=== PATIENT | female | born 1980 | race Caucasian/White ===

== ENCOUNTER 2016-06-28 21:16 | Emergency (ER) | payer BC ==
[~2016-06-28] VITALS: Ht 170.2 cm; Wt 100.0 kg
[~2016-06-28 21:16] MED LIST: MOTRIN 600600 MG/TAB PO
[2016-06-28 21:19] VITALS: BP 129/88; TEMP 98
[2016-06-28 23:02] VITALS: PULSE 96
== END 2016-06-28 23:01 | disposition home or self-care (01) ==
LOC: COL.ER 21:16
DX: S52.571A Other intraarticular fracture of lower end of right radius, initial encounter for closed fracture (principal); V00.121A Fall from non-in-line roller-skates, initial encounter; Y92.331 Roller skating rink as the place of occurrence of the external cause

== ENCOUNTER 2019-11-13 18:23 | Emergency (ER) | payer BC ==
[~2019-11-13] VITALS: Ht 170.2 cm; Wt 96.4 kg
[2019-11-13 18:26] VITALS: TEMP 97.2
[2019-11-13 18:43] LABS: COLLECTION METHOD CLEAN CATCH
[2019-11-13 18:53] LABS: MUCOUS Present /lpf; PH 5 (5-8); URINE APPEARANCE Hazy; URINE BACTERIA None Seen /hpf; URINE BILIRUBIN Negative (NEGATIVE); URINE BLOOD 3+ (NEGATIVE); URINE COLOR Yellow; URINE GLUCOSE Negative (NEGATIVE); URINE KETONE Trace (NEGATIVE); URINE LEUKOCYTE ESTERASE Trace (NEGATIVE); URINE NITRATE Negative (NEGATIVE); URINE PROTEIN(semi-quant) 1+ (NEGATIVE); URINE RBC >50 /hpf; URINE UROBILINOGEN Negative (NEGATIVE)
[2019-11-13 19:24] LABS: BASO % 0.4 % (0.0-2.0); EOS % 0.5 % (0-4.0); GRAN # 7.3 (1.4-6.5); HEMATOCRIT 37.2 % (37.0-47.0); HEMOGLOBIN 12.5 g/dl (12.5-16.0); LYMPH # 0.8 (1.2-3.4); LYMPH % 9.6 % (20.0-51.0); MEAN CELL VOLUME 93 fl (80.0-100.0); MEAN CORPUSCULAR HEMOGLOBIN 31 pg (27.0-31.0); MEAN CORPUSCULAR HGB CONC 34 g/dl (33.0-37.0); MEAN PLATELET VOLUME 10.9 fl (7.4-10.4); MONO # 0.3 (0.1-0.6); PLATELET COUNT 224 K/mm3 (130-400); REDCELL DISTRIBUTION WIDTH-CV 11.8 % (11.5-14.5)
[2019-11-13 19:35] LABS: ALANINE AMINOTRANSFERASE 13 U/L (4-34); ALBUMIN 4.2 gm/dL (3.5-5.0); ALKALINE PHOSPHATASE 77 U/L (50-136); ANION GAP 10 mmol/L (7-16); AST,SGOT 19 U/L (15-37); BILIRUBIN,TOTAL 0.3 mg/dL (0.0-1.0); BLOOD UREA NITROGEN 12 mg/dL (7-17); CALCIUM 9.1 mg/dL (8.4-10.2); CARBON DIOXIDE 23 mmol/L (22-30); CHLORIDE 104 mmol/L (98-107); CREATININE, serum 0.85 (0.52-1.25); GLUCOSE 127 mg/dL (74-106); POTASSIUM 3.4 mmol/L (3.4-5.0); SODIUM 136 mmol/L (137-145); TOTAL PROTEIN 7.4 gm/dL (6.4-8.2)
[2019-11-13] MEDS ORDERED: WELLBUTRIN XL150 MG PO (19:37)
[2019-11-13 19:42] LABS: C-REACTIVE PROTEIN < 0.5 mg/dL (0.0-0.9)
[2019-11-13] MEDS ORDERED: ZOFRAN 4MG T4 MG/TAB PO (20:59)
[2019-11-13] MEDS ORDERED: NORCO 325 MG-51 TAB PO (20:59)
[2019-11-13] MEDS ORDERED: CIPRO 500MG TA500 MG PO (20:59)
[2019-11-13 21:35] VITALS: BP 114/78; PULSE 65
== END 2019-11-13 21:35 | disposition home or self-care (01) ==
LOC: COL.ER 18:23
PROVIDERS: Nurse Practitioner Primary Care
DX: N20.1 Calculus of ureter (principal); N39.0 Urinary tract infection, site not specified; F32.9 Major depressive disorder, single episode, unspecified; Z32.02 Encounter for pregnancy test, result negative
CPT/HCPCS: J0696; J1170; J2405; J2550; J7030; Q9967